=== PATIENT | male | born 1960 | race Caucasian/White ===

== ENCOUNTER 2019-02-23 10:46 | Outpatient (CLI) | payer OTHER ==
--- NOTE | 2019-02-23 11:36 | RAD ---
EXAM: 2 views of the right hip HISTORY: Right hip pain COMPARISON: None FINDINGS: 2 views of the right hip shows no evidence of acute fracture or dislocation. No degenerativ e changes are seen. No soft tissue swelling is present. IMPRESSION: No evidence of acute osseous abnormality.
--- NOTE | 2019-02-23 11:52 | RAD ---
LUMBAR SPINE TWO VIEWS: HISTORY: Disability evaluation. FINDINGS: The lumbar vertebrae maintain height. Moderate hypertrophic degenerative changes are noted with anter ior and lateral spurring form the lumbar vertebrae. There are large anterior osteophytes at L3-L4 and L4-L5. Loss of disk space at L5-S1. Mild facet hypertrophy. No evidence of spondylolisthesis. IMPRESSION: Moderate hypertrophic degenerative change. POS: [facility]
== END 2019-02-23 10:47 | disposition home or self-care (01) ==
LOC: BICRAD 10:46
PROVIDERS: ATTEND Internal Medicine
DX: Z02.71 Encounter for disability determination (principal); M47.816 Spondylosis without myelopathy or radiculopathy, lumbar region
CPT/HCPCS: 72100